=== PATIENT | male | born 1985 | race Caucasian/White ===

== ENCOUNTER → 2019-05-03 | Outpatient (CLI) | payer OTHER ==
[2019-05-03 07:54] LABS: ALBUMIN 4.3 gm/dl (3.1-4.5); ALKALINE PHOSPHATASE 76 U/L (45-117); BUN 16 mg/dl (7-24); CHLORIDE 104 mmol/L (98-107); CHOLESTEROL 222 mg/dL (<200); CREATININE 0.87 mg/dL (0.70-1.30); HDL CHOLESTEROL 37 mg/dl (40-60); LDL CHOLESTEROL 114 mg/dL (9-159); POTASSIUM 4.1 mmol/L (3.5-5.1); SGOT/AST 21 IU/L (3-35); SGPT/ALT 61 U/L (12-78); SODIUM 135 mmol/L (136-145); TOTAL PROTEIN 8.1 gm/dL (6.4-8.2); TRIGLYCERIDES 357 mg/dl (<150); VLDL CHOLESTEROL 71 mg/dL (6-40)
== END | disposition home or self-care (01) ==
LOC: LAB 06:48
DX: Z79.899 Other long term (current) drug therapy (principal)

== ENCOUNTER 2019-10-31 14:13 | Emergency (ER) | payer OTHER ==
[~2019-10-31] VITALS: Ht 175.2 cm; Wt 86.2 kg
[2019-10-31] MEDS ORDERED: SEPTDS PO (17:03)
[2019-10-31] MEDS ORDERED: IBUPROFEN600 MG PO (17:03)
== END 2019-10-31 17:06 | disposition home or self-care (01) ==
LOC: ED 14:13
DX: S90.121A Contusion of right lesser toe(s) without damage to nail, initial encounter (principal); L03.115 Cellulitis of right lower limb; X58.XXXA Exposure to other specified factors, initial encounter; Y93.89 Activity, other specified; Y92.89 Other specified places as the place of occurrence of the external cause; Y99.8 Other external cause status

== ENCOUNTER → 2020-01-10 | Outpatient (CLI) | payer OTHER ==
[~2020-01-10] MED LIST: IBUPROFEN600 MG PO; SEPTDS PO
== END | disposition home or self-care (01) ==
LOC: LAB 10:45
PROVIDERS: ATTEND Nurse Practitioner Family
DX: R19.7 Diarrhea, unspecified (principal)

== ENCOUNTER 2023-02-25 09:04 | Emergency (ER) | payer OTHER ==
[~2023-02-25] VITALS: Ht 175.2 cm; Wt 67.6 kg
[2023-02-25 10:04] LABS: BASO # 0.1 10*3/uL (0.0-0.1); BASO % 0.9 % (0.0-1.0); EOS # 0.1 10*3/uL (0.0-0.4); EOS % 1.6 % (1.0-4.0); HEMATOCRIT 39.8 % (42.0-52.0); LYMPH # 1.1 10*3/uL (1.3-4.4); LYMPH % 19.1 % (27.0-41.0); MEAN CELL VOLUME 91.7 fl (80.0-94.0); MEAN CORPUSCULAR HGB 31.6 pg (27.0-31.0); MEAN CORPUSCULAR HGB CONC 34.4 g/dl (33.0-37.0); MEAN PLATELET VOLUME 9.3 fl (9.6-12.3); MONO # 0.3 10*3/uL (0.1-1.0); MONO % 5.7 % (3.0-9.0); NEUT % 72.2 % (47.0-73.0); PLATELET COUNT AUTOMATED 285 10*3/uL (130-400); RED BLOOD COUNT 4.34 10*6/uL (4.50-5.90); RED CELL DISTRI WIDTH 12.2 % (0-14.5); WHITE BLOOD COUNT 5.6 10*3/uL (4.8-10.8)
[2023-02-25 10:32] LABS: ALKALINE PHOSPHATASE 76 U/L (46-116); BUN 10 mg/dl (9-23); CHLORIDE 96 mmol/L (98-107); POTASSIUM 4.5 mmol/L (3.4-5.1); SGPT/ALT 27 U/L (5-49); TOTAL PROTEIN 7.1 gm/dL (6.0-8.0)
[2023-02-25] MEDS ORDERED: HUMALOG100 UNIT/1 SQ (12:14)
[2023-02-25] MEDS ORDERED: LANTUS SOL100 UNIT/1 SC (12:14)
== END 2023-02-25 12:28 | disposition home or self-care (01) ==
LOC: ED 09:04
PROVIDERS: Internal Medicine
DX: E11.65 Type 2 diabetes mellitus with hyperglycemia (principal); H53.8 Other visual disturbances; R42 Dizziness and giddiness; Z79.4 Long term (current) use of insulin

== ENCOUNTER 2023-08-03 16:22 | Inpatient (IN) | payer SELFPAY ==
[~2023-08-03] VITALS: Ht 175.3 cm; Wt 58.1 kg
[~2023-08-03 16:22] MED LIST changes: +HUMALOG100 UNIT/1 SQ; +LANTUS SOL100 UNIT/1 SC
[2023-08-03 16:37] VITALS: BP 143/77
[2023-08-03] MEDS ORDERED: SODIUM CHLORIDE 0.9% 1,000 ML IV ONE ×3 (17:00→19:15)
[2023-08-03 17:25] LABS: BASO % 0.3 % (0.0-1.0); EOS # 0.1 10*3/uL (0.0-0.4); EOS % 1.1 % (1.0-4.0); HEMATOCRIT 47.1 % (42.0-52.0); LYMPH % 8.6 % (27.0-41.0); MEAN CELL VOLUME 92.2 fl (80.0-94.0); MEAN CORPUSCULAR HGB 31.3 pg (27.0-31.0); MEAN PLATELET VOLUME 9.2 fl (9.6-12.3); MONO # 0.7 10*3/uL (0.1-1.0); NEUT # 9.6 10*3/uL (2.3-7.9); NEUT % 83.3 % (47.0-73.0); PLATELET COUNT AUTOMATED 542 10*3/uL (130-400); RED BLOOD COUNT 5.11 10*6/uL (4.50-5.90); RED CELL DISTRI WIDTH 12.5 % (0-14.5); WHITE BLOOD COUNT 11.5 10*3/uL (4.8-10.8)
[2023-08-03 17:40] LABS: BILIRUBIN Negative (Negative); BLOOD Negative (Negative); CLARITY Clear (Clear); COLOR Yellow (Yellow); GLUCOSE 3+ (Negative); KETONE 4+ (Negative); LEUKO ESTERASE Negative (Negative); NITRITE Negative (Negative); SPECIFIC GRAVITY >= 1.030 (1.001-1.030); UROBILINOGEN 0.2 E.U./dl (0.0-1.0)
[2023-08-03 17:47] LABS: URINE AMPHETAMINES Negative (1000ng/ml); URINE BARBITURATES Negative (200ng/ml); URINE BENZODIAZEPINES Negative (200ng/ml); URINE CANNABINOIDS (THC) Negative (50ng/ml); URINE COCAINE Positive (300ng/ml); URINE METHADONE Negative (300ng/ml); URINE OPIATES Negative (300ng/ml); URINE PHENCYCLIDINE Negative (25ng/ml)
[2023-08-03 17:51] LABS: BACTERIA 1+; MUCOUS 1+; RBC 0-2 rbc/hpf (0-2)
[2023-08-03 18:01] LABS: BUN 18 mg/dl (9-23); CHLORIDE 90 mmol/L (98-107); POTASSIUM 4.6 mmol/L (3.4-5.1); SGPT/ALT 7 U/L (5-49)
[2023-08-03] MEDS ORDERED: INSULIN REGULAR, HUMAN 1 UNIT/0.01 ML IV ONE (18:20)
[2023-08-03 19:30] VITALS: BP 125/68
[2023-08-03] MEDS ORDERED: SODIUM CHLORIDE 0.9% 1,000 ML IV SCH (19:30)
[2023-08-03] MEDS ORDERED: Ondansetron Hydrochloride 4 MG/2 ML VIAL IV PRN (19:30)
[2023-08-03] MEDS ORDERED: INSULIN REGULAR IN 0.9 % NACL 100 ML IV SCH (19:40)
[2023-08-03 20:21] LABS: ABG BASE EXCESS -4.5 mmol/L (-2.0-2.0); ARTERIAL BLOOD GAS PH 7.424 (7.35-7.45)
[2023-08-03 21:03] LABS: BUN 19 mg/dl (9-23); CHLORIDE 96 mmol/L (98-107); POTASSIUM 3.7 mmol/L (3.4-5.1)
[2023-08-03 21:23] VITALS: BP 120/68
[2023-08-03] MEDS ORDERED: CALCIUM GLUC IN NACL, ISO-OSM 100 ML IV ONE (21:30)
[2023-08-03] MEDS ORDERED: POTASSIUM CHLORIDE IN WATER 100 ML IV SCH (22:00)
[2023-08-03 22:25] VITALS: BP 111/59
[2023-08-04] VITALS: BP 103/57
[2023-08-04] MEDS ORDERED: SODIUM CHLORIDE 0.45% IV ONE (02:15)
[2023-08-04] MEDS ORDERED: DEXTROSE IV ONE (02:15)
[2023-08-04] MEDS ORDERED: [UNRECOGNIZED DRUG - OTHER] IV ONE (02:15)
[2023-08-04] MEDS ORDERED: DEXTROSE 5% SALINE 0.45% 1,000 ML IV SCH (02:25)
[2023-08-04 02:28] LABS: BUN 11 mg/dl (9-23); CHLORIDE 107 mmol/L (98-107)
[2023-08-04] MEDS ORDERED: POTASSIUM CHLORIDE IN WATER 100 ML IV SCH (03:00)
[2023-08-04 04:02] VITALS: BP 102/60
[2023-08-04 06:35] LABS: BUN 7 mg/dl (9-23); CHLORIDE 106 mmol/L (98-107); POTASSIUM 3.7 mmol/L (3.4-5.1)
[2023-08-04 06:38] LABS: FREE T4 1.04 ng/dl (0.89-1.76)
[2023-08-04 06:39] LABS: BASO % 0.3 % (0.0-1.0); EOS # 0.1 10*3/uL (0.0-0.4); HEMATOCRIT 33.8 % (42.0-52.0); LYMPH # 1.4 10*3/uL (1.3-4.4); LYMPH % 15.4 % (27.0-41.0); MEAN CELL VOLUME 91.4 fl (80.0-94.0); MEAN CORPUSCULAR HGB 30.8 pg (27.0-31.0); MEAN CORPUSCULAR HGB CONC 33.7 g/dl (33.0-37.0); MONO # 0.7 10*3/uL (0.1-1.0); MONO % 8.2 % (3.0-9.0); NEUT # 6.8 10*3/uL (2.3-7.9); NEUT % 74.7 % (47.0-73.0); RED CELL DISTRI WIDTH 12.5 % (0-14.5); WHITE BLOOD COUNT 9.1 10*3/uL (4.8-10.8)
[2023-08-04 06:41] LABS: PLATELET COUNT AUTOMATED 324 10*3/uL (130-400)
[2023-08-04] MEDS ORDERED: DEXTROSE 10 % IN WATER 250 ML IV PRN (07:10)
[2023-08-04] MEDS ORDERED: INSULIN LISPRO 1 UNIT/0.01 ML SQ SCH (07:30)
[2023-08-04 07:56] VITALS: BP 104/61
[2023-08-04] MEDS ORDERED: Phosphorus/Potassium 1.45 GM PACKET PO SCH (08:00)
[2023-08-04] MEDS ORDERED: Nicotine 21 MG PATCH T SCH (10:00)
[2023-08-04] MEDS ORDERED: Enoxaparin Sodium 40 MG/0.4 ML SYR SC SCH (10:00)
[2023-08-04 11:05] LABS: BUN 7 mg/dl (9-23); CHLORIDE 101 mmol/L (98-107); POTASSIUM 3.8 mmol/L (3.4-5.1)
[2023-08-04 11:08] LABS: HEMOGOLBIN A1C 15.4 % (4.8-5.6)
[2023-08-04 12:00] VITALS: BP 95/60
[2023-08-04] MEDS ORDERED: LANTUS SOL100 UNIT/1 SC (13:21)
[2023-08-04] MEDS ORDERED: HUMALOG TE100 UNIT/1 SQ (13:21)
[2023-08-04] MEDS ORDERED: ACCU-CHEK FAST1 EACH MC (14:07)
[2023-08-04] MEDS ORDERED: [UNRECOGNIZED DRUG - OTHER] MC (14:07)
[2023-08-04] MEDS ORDERED: GLUCTESTSTRIP DEVI (14:07)
[2023-08-04] MEDS ORDERED: Insulin Glargine, Recombinan 1 UNIT/0.01 ML SC SCH (22:00)
== END 2023-08-04 13:52 | disposition home or self-care (01) | DRG 637 ==
LOC: ED 16:22 → ICCU 19:16 → EDHOLD 19:16 → ICCU 21:44
PROVIDERS: Internal Medicine; Nurse Practitioner Family; ADMIT Internal Medicine; ATTEND Internal Medicine
DX: E11.10 Type 2 diabetes mellitus with ketoacidosis without coma (principal); N17.0 Acute kidney failure with tubular necrosis; E87.3 Alkalosis; E87.8 Other disorders of electrolyte and fluid balance, not elsewhere classified; D75.839 Thrombocytosis, unspecified; E83.51 Hypocalcemia; E78.5 Hyperlipidemia, unspecified; F17.210 Nicotine dependence, cigarettes, uncomplicated; Z82.49 Family history of ischemic heart disease and other diseases of the circulatory system; Z79.4 Long term (current) use of insulin; Z79.899 Other long term (current) drug therapy

== ENCOUNTER 2024-02-28 14:51 | Emergency (ER) | payer MEDICAID ==
[~2024-02-28] VITALS: Ht 175.2 cm; Wt 61.3 kg
[~2024-02-28 14:51] MED LIST changes: +ACCU-CHEK FAST1 EACH MC; +GLUCTESTSTRIP DEVI; +HUMALOG TE100 UNIT/1 SQ; +[UNRECOGNIZED DRUG - OTHER] MC
[2024-02-28] MEDS ORDERED: Acetaminophen/Oxycodone 5 MG/325 MG TABLET PO ONE (15:35)
[2024-02-28] MEDS ORDERED: PERCOCET 5-3251 EACH PO (16:51)
== END 2024-02-28 17:17 | disposition home or self-care (01) ==
LOC: ED 14:51
DX: N43.2 Other hydrocele (principal); E83.51 Hypocalcemia; E87.8 Other disorders of electrolyte and fluid balance, not elsewhere classified; E78.5 Hyperlipidemia, unspecified; E11.65 Type 2 diabetes mellitus with hyperglycemia; F17.210 Nicotine dependence, cigarettes, uncomplicated; Z79.4 Long term (current) use of insulin; Z98.890 Other specified postprocedural states

== ENCOUNTER → 2024-11-20 | Outpatient (CLI) | payer OTHER ==
[~2024-11-20] MED LIST changes: +PERCOCET 5-3251 EACH PO
== END | disposition home or self-care (01) ==
LOC: LAB 12:11
PROVIDERS: ATTEND Nurse Practitioner Family
DX: G25.81 Restless legs syndrome (principal); E11.9 Type 2 diabetes mellitus without complications

== ENCOUNTER 2024-12-16 14:27 | Emergency (ER) | payer OTHER ==
[~2024-12-16] VITALS: Ht 175.2 cm; Wt 69.9 kg
[2024-12-16] MEDS ORDERED: MINIPRESS5 M1 PO (15:16)
[2024-12-16] MEDS ORDERED: LAMOTRIGINE100 MG PO (15:16)
[2024-12-16 15:17] LABS: BASO # 0.1 10*3/uL (0.0-0.1); BASO % 0.7 % (0.0-1.0); EOS # 0.2 10*3/uL (0.0-0.4); EOS % 2.6 % (1.0-4.0); MEAN CELL VOLUME 92.7 fl (80.0-94.0); MEAN CORPUSCULAR HGB 32.1 pg (27.0-31.0); MEAN PLATELET VOLUME 8.9 fl (9.6-12.3); MONO # 0.5 10*3/uL (0.1-1.0); MONO % 6.3 % (3.0-9.0); NEUT # 4.6 10*3/uL (2.3-7.9); NEUT % 60.3 % (47.0-73.0); NUCLEATED RED BLOOD CELL 0.0 % (0.0-0.0); NUCLEATED RED BLOOD CELL 0.0 10*3/uL (0.0-0.0); PLATELET COUNT AUTOMATED 303 10*3/uL (130-400); RED CELL DISTRI WIDTH 12.0 % (0-14.5)
[2024-12-16] MEDS ORDERED: MIRTAZAPINE30 M2 PO (15:17)
[2024-12-16] MEDS ORDERED: ABILIFY MAINTE400 MG IM (15:20)
[2024-12-16 15:28] LABS: ACT PARTIAL THROMBO TIME 26.2 SECONDS (20.0-32.1)
[2024-12-16 15:46] LABS: BUN 10 mg/dl (9-23)
[2024-12-16 15:48] LABS: ETHYL ALCOHOL < 3.0 mg/dl (<3)
[2024-12-16 16:43] LABS: URINE AMPHETAMINES Positive (1000ng/ml); URINE BARBITURATES Negative (200ng/ml); URINE BENZODIAZEPINES Negative (200ng/ml); URINE CANNABINOIDS (THC) Positive (50ng/ml); URINE COCAINE Positive (300ng/ml); URINE METHADONE Negative (300ng/ml); URINE OPIATES Negative (300ng/ml); URINE PHENCYCLIDINE Negative (25ng/ml)
== END 2024-12-16 16:52 | disposition left against medical advice (07) ==
LOC: ED 14:27
PROVIDERS: Internal Medicine
DX: R07.89 Other chest pain (principal); R06.02 Shortness of breath; Z98.890 Other specified postprocedural states

== ENCOUNTER → 2025-03-06 | Outpatient (CLI) | payer OTHER ==
[~2025-03-06] MED LIST changes: +ABILIFY MAINTE400 MG IM; +LAMOTRIGINE100 MG PO; +MINIPRESS5 M1 PO; +MIRTAZAPINE30 M2 PO
[2025-03-06 12:50] LABS: LDL CHOLESTEROL 70.0 mg/dL (9-159)
== END | disposition home or self-care (01) ==
LOC: LAB 11:35
PROVIDERS: ATTEND Nurse Practitioner Family
DX: E11.9 Type 2 diabetes mellitus without complications (principal); E55.9 Vitamin D deficiency, unspecified; E78.2 Mixed hyperlipidemia; Z11.3 Encounter for screening for infections with a predominantly sexual mode of transmission